=== PATIENT | female | born 1990 ===

== ENCOUNTER 2024-10-18 10:04 | Outpatient (AMB) | payer BC, SELFPAY ==
--- NOTE | 2024-10-18 10:08 | A.OFFPC_ITS ---
Vital Signs 10/18/24 10:17 Height 5 ft 5 in BMI Reason not done Patient refused/unable BP 102/68 Blood Pressure Location Lt brachial Position Sitting Respiration 12 Pulse 83 Pulse Source Pulse Oximeter Pulse Oximetry (%) 98 Oxygen Delivery Method Room Air Intake Visit Reasons: INSPECTOR ROUGH CASTINGS-EST CARE Intake Note: New patient to establish care Television News Photographer Required: No Allergies No Known Allergies Allergy (Verified 10/18/24 10:26) Medication List - Last Reconciled 10/18/24 by IRIS Ruby atomoxetine 40 mg PO DAILY Tobacco use date assessed: 10/18/24 Dental Screening Dental Screen Date: 10/18/24 Did you have a dental visit in the last 12 months?: Yes Did you have a dental problem in the last 6 months where you did not have access to dental care?: No Was dental information given to patient?: Patient has dentist HPI HPI Comments History of Present Illness Details 33 y/o F with ADHD, IBS, Herpes 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 Optho - glasses, last exam overdue. She will schedule The patient is a 33-year-old female presenting for a wellness visit and to establish care with a new provider. She has a history of Attention- Deficit/Hyperactivity Disorder (ADHD) that is managed by a psychiatrist with medication. The patient also has a diagnosis of Irritable Bowel Syndrome (IBS) that she associates with stress and dietary factors, though she currently does not feel the need to see a credit card specialist. Her IBS was more prominent during graduate school, a time she recalls being particularly stressful. There is no current GI specialist involved in her care. She reports occasional triggers that lead to episodes of nausea and loose stools, but she does not vomit. 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 She has previously been prescribed Acyclovir for symptomatic outbreaks. Her dietary changes, notably not eating meat, and improved stress management have helped reduce the frequency of outbreaks. She does not currently require suppressive therapy. 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 - Housing: Not discussed. - Education: Completed graduate school. - Family Status: Has one full brother, o ne half-sister on mother's side, and three half-siblings on father's side. - Substance Use: No current issues; fami ly history includes parental substance abuse. - Exercise: Not discussed. - Functional Status: Reports chronic low back pain since a previous injury, impacting her hamstrings. - Nutrition: Follows a diet excluding me at, reports improvements in her condition with this dietary change. Health Maintenance - Annual wellness visit to establish car e. - Discussed vaccinations: Intent to rece shelly flu vaccination at a convenient time (e.g., Wednesday afternoon). - Pap smear: Last conducted approximatel y three to four years ago, normal results reported. - Eye exam due for maintenance of her vi megan. - Depression screening negative, except for focus-related concerns attributed to ADHD. - Alcohol use screening negative. - Diet discussed as a potential manageme nt strategy for stress and cold sore outbreaks. - Discussed self-breast examinations and importance of visual examinations for skin changes. Physical Exam General: Well developed, well nourished, in no acute distress. Appears stated age. Head: Normocephalic, atraumatic. Eyes: Pupils are equal, round and reactive to light and accommodation. Conjunctivae are clear. Vision grossly normal. Patient wears glasses and is due for an eye exam. Ears: Tympanic membranes clear bilaterally, external auditory canal within normal limits. Hearing seems okay to the patient. Nose: Patent, without discharge. Mouth: There are no ulcers or lesions noted. No inflammation, no post nasal drip , no plaques nor exudates. Neck: Supple, no adenopathy or thyromegaly. A non-significant lump noted, unchanged for many years. Lungs: Clear to auscultation bilaterally. No rales, rhonchi or wheeze noted. Good air flow in all andre. Heart: Regular rate and rhythm. No murmurs, click, rubs or gallops are noted. Abdomen: Bowel sounds present in all quadrants. The abdomen is soft, nontender, with no masses or organomegaly noted. No hernias are noted. Patient reports IBS with occasional digestive upset. Musculoskeletal: Joints are nontender, without swelling, redness, or effusions. Range of motion is observed to be normal. Chronic low back strain noted, more guarded on the right side, affecting hamstrings. Pulses: Peripheral pulses are equal and palpable bilaterally. Extremities: No clubbing, cyanosis nor edema is noted. Good pulses in ankles. Neurologic: Gait and station normal. Cranial Nerves 2-12 intact. Motor strength grossly symmetrical and intact. No sensory loss. Balance normal. Skin: No rashes, ulcers, or lesions noted. Turgor is good. Skin color is good. Hair and nails are without abnormalities. Patient reports body acne, managed with an manager winter. Psych: Normal eye contact, affect and mood appropriate, and normal interactions. Patient is alert and appropriate to context. Reports ADHD and is managed by a psychiatrist. Plan - ADHD: Continue current management with psychiatrist, no changes warranted as symptoms appear under control. - IBS: No current active management; pat ient advised to maintain stress management techniques and dietary modifications. - Cold Sores: Prescribe Acyclovir for as -needed use to manage outbreaks promptly. - Wellness: Referral to OBGYN for women' s health maintenance and a routine Pap smear. - Vision: Recommend scheduling an eye ex am when feasible. - Back Pain: Encourage completing physic al therapy and visiting a chiropractor for structural support. Patient was informed and verbally consented to the use of an ambient scribe for clinic note documentation during this visit. Patient declined labs as she really does not like needles. I have advised for her to follow up in 1 year for complete physical exam, sooner as needed This note is constructed using voice recognition software. While every effort has been made to ensure accuracy in information systems project manager, still errors may have been included Sometimes, these errors may affect the content or meaning of the given sentence . [facility] Medical History (Updated 10/18/24 @ 17:21 by TRI Ruby) Cold sore IBS (irritable bowel syndrome) ADHD Surgical History (Updated 10/18/24 @ 10:16 by Aaron Smith MA) No pertinent past surgical history Family History Mother Mental health disorder Substance abuse Thyroid disorder Father Substance abuse Cancer Maternal Grandfather Substance abuse Maternal Grandmother Hypertension Cardiovascular disease Social History (Updated 10/18/24 @ 10:13 by Aaron Smith MA) Household Members: Other Household Members Other:: roomate Both parents involved: No Caregiver staying overnight: No Housing: Condominium Are you a primary transition of care specialist to a significant other at home: No Do you presently have visiting nurse or other home services: No 75 years or older and lives alone: No Alcohol intake: current Alcohol intake frequency: a few times a month Patient Tobacco Use Status: Never used Tobacco e-Cigarette/Vaping Use: Never Used Second Hand Smoke Exposure: No service: No Current occupational status: employed 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 1. Little interest or pleasure in doing things: not at all 2. Feeling down, depressed, or hopeless: not at all 3. Trouble falling or staying asleep, or sleeping too much: not at all 4. Feeling tired or having little energy: not at all 5. Poor appetite or overeating: not at all 6. Feeling bad about yourself - or that you are a failure or have let yourself or your family down: not at all 7. Trouble concentrating on things, such as reading the newspaper or watching television: nearly every day 8. Moving or speaking so slowly that other people could have noticed. Or the opposite - being so fidgety or restless that you have been moving around a lot more than usual: not at all 9. Thoughts that you would be better off or of hurting yourself in some way: not at all Total score: 3 Depression Screening Interpretation: Negative Depression Screening Done: Yes 81936 - PHQ-9 Billing: Yes Source: Developed by Drs. Nicholas Isabel, Aminta Chacon, Mich Hyman and colleagues, with an educational brenden from [employer]. Thrive Questionnaire Date Thrive assessed: 10/18/24 I am a: Patient What is your living situation today?: I have a steady place to live Within the past 12 months, did the food you bought not last and you didn't have the money to get more?: Never true Within the past 12 months, did you worry whether your food would run out before you got money to buy more?: Never true Do you have trouble paying for medicines?: No Do you have trouble getting transportation to medical appointments?: No Do you have trouble paying your heating and electricity bill?: No Do you have trouble taking care of your child, family member or friend?: No Do you have trouble with day-to-day activities such as bathing, preparing meals, shopping, managing finances, etc.?: No Are you currently unemployed and looking for a job?: No Are you interested in more education?: No Please select the resources that you would like help with: None Currently or been in a relationship where the following occur: I choose not to answer THRIVE Score: 0 AUDIT C Alcohol Use Questionnaire (AUDIT-C) 1. How often do you have a drink containing alcohol?: 2-4 times a month 2. How many drinks containing alcohol do you have on a typical day when you are drinking?: 1 or 2 3. How often do you have six or more drinks on one occasion?: Never Total Score: 2 Score Reviewed/Action Taken: Yes LIBERTAD-7 AMB Questionnaire LIBERTAD-7 Date LIBERTAD - 7 assessed: 10/18/24 Feeling nervous, anxious, or on edge: 0 = Not at all Not being able to stop or control worryin = Not at all Worrying too much about different things: 0 = Not at all Trouble relaxin = Not at all Being so restless that it is hard to sit still: 0 = Not at all Becoming easily annoyed or irritable: 0 = Not at all Feeling afraid as if something awful might happen: 0 = Not at all Total LIBERTAD-7 score (0-4 normal; 5-9 mild; 10-14 moderate; 15-21 severe): 0 Source: Developed by Drs. Nicholas Isabel, Aminta Chacon, Mich Hyman and colleagues, with an educational brenden from [employer]. LIBERTAD-7 Assessment Billing LIBERTAD-7 Assessment Tool: LIBERTAD-7 Assessment 26852 Physical exam (Primary Care) Vital Signs: Last Vital Signs Pulse 83 10/18/24 10:17 Resp 12 10/18/24 10:17 BP 102/68 10/18/24 10:17 Pulse Ox 98 10/18/24 10:17 Oxygen Delivery Method Room Air 10/18/24 10:17 Tobacco/Smoking Status: Tobacco use Status Tobacco use date assessed 10/18/24 10/18/24 10:19 Patient Tobacco Use Status Never used Tobacco 10/18/24 10:19 e-Cigarette/Vaping Use Never Used 10/18/24 10:19 PHQ-9: PHQ-9 Score PHQ-9: Total score 3 10/18/24 10:37 Depression Screening Interpretation: Negative Thrive Assessment: Date of Thrive Assessment Date Thrive assessed 10/18/24 10/18/24 10:19 Currently or been in a relationship where the following occur: I choose not to answer Coding Level of Care Code New Pt Prev Care 18-39yr(35342 Diagnoses Encounter for general adult medical examination without abnormal findings Z00.00 Attention deficit hyperactivity disorder (ADHD), combined type F90.2 Attention deficit-hyperactivity disorder type: combined inattentive- hyperactive Herpes B00.9 Chronic bilateral low back pain without sciatica M54.50; G89.29 Back pain laterality: bilateral Sciatica presence: without sciatica Additional Codes LIBERTAD-7 Assessment Billing - LIBERTAD-7 Assessment Tool: LIBERTAD-7 Assessment 44519 ([id number]) PHQ-9 - 28671 - PHQ-9 Billing: Yes ([id number]) Assessment & Plan Assessment & Plan (1) Encounter for general adult medical examination without abnormal findings: Code(s): Z00.00 - Encounter for general adult medical examination without abnormal findings (2) ADHD: Code(s): F90.9 - Attention-deficit hyperactivity disorder, unspecified type Qualifiers: Attention deficit-hyperactivity disorder type: combined inattentive- hyperactive Qualified Code(s): F90.2 - Attention-deficit hyperactivity disorder, combined type (3) Herpes: Code(s): B00.9 - Herpesviral infection, unspecified Category: Medical (4) Chronic low back pain: Code(s): M54.50 - Low back pain, unspecified; G89.29 - Other chronic pain Category: Medical Qualifiers: Back pain laterality: bilateral Sciatica presence: without sciatica Qualified Code(s): M54.50 - Low back pain, unspecified; G89.29 - Other chronic pain Plan . 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 The purpose of these visits is to: Screen for medical issues Assess your risk for future medical problems Encourage a healthy lifestyle Update vaccinations and other preventive care services Help you get to know your provider in case of an illness Information Even if you feel fine, you should still see your provider for regular checkups. These visits can help you avoid problems in the future. For example, the only way to find out if you have high blood pressure is to have it checked regularly. High blood sugar and high cholesterol levels also may not have any symptoms in the early stages. A simple blood test can check for these conditions. There are specific times when you should see your provider or receive specific health screenings. The [place] Preventive Services Task Force publishes a list of recommended screenings. Below are screening guidelines for women ages 18 to 39. BLOOD PRESSURE SCREENING Your blood pressure should be checked at least once every 3 to 5 years if: Your blood pressure is in the normal range (top number less than 120 mm Hg and bottom number less than 80 mm Hg) You don't have risk factors for high blood pressure Ask your provider if you need your blood pressure checked more often if: The top number is 120 to 129 mm Hg or the bottom number is 70 to 79 mm Hg You have diabetes, heart disease, kidney problems, are overweight, or have certain other health conditions You have a first-degree relative with high blood pressure You are Black You had high blood pressure during a If the top number is 130 mm Hg or greater or the bottom number is 80 mm Hg or greater, this is considered stage 1 hypertension. Schedule an appointment with your provider to learn how you can reduce your blood pressure. Watch for blood pressure screenings in your area. Ask your provider if you can stop in to have your blood pressure checked. BREAST CANCER SCREENING Experts do not agree about the benefits of breast self-exams in finding breast cancer or saving lives. Talk to your provider about what is best for you. A screening mammogram is not recommended for most women under age 40. Your provider may discuss and recommend mammograms, MRI scans, or ultrasounds if you have an increased risk for breast cancer, such as: A mother or sister who had breast cancer at a young age (most often starting screening earlier than the age the close relative was diagnosed) You carry a high-risk genetic marker CERVICAL CANCER SCREENING Cervical cancer screening should start at age 21 years unless your provider advises otherwise. After the first test: Women ages 21 through 29 should have a Pap test every 3 years. Exoprts do not agree on whether HPV testing is recommended for this age group. Women ages 30 through 65 should be screened with either a Pap test every 3 years or the HPV test every 5 years or both tests every 5 years (called cotesting ). Women who have been treated for precancer (cervical dysplasia) should continue to have Pap tests for 20 years after treatment or until age 65, whichever is longer. If you have had your uterus and cervix removed (total hysterectomy), and you have not been diagnosed with cervical cancer or precancer (high grade cervical neoplasia), you do not need cervical cancer screening. CHOLESTEROL SCREENING Cholesterol screening should begin at: Age 45 for women with no known risk factors for coronary heart disease Age 20 for women with known risk factors for coronary heart disease Repeat cholesterol screening should take place: Every 5 years for women with normal cholesterol levels More often if changes occur in lifestyle (including weight gain and diet) More often if you have diabetes, heart disease, kidney problems, or certain other conditions DIABETES SCREENING You should be screened for diabetes starting at age 35 and then repeated every 3 years if you have no risk factors for diabetes. Screening may need to start earlier and be repeated more often if you have other risk factors for diabetes, such as: You have a first degree relative with diabetes. You are overweight or have obesity. You have high blood pressure, prediabetes, or a history of heart disease. Screening for diabetes should be done if you are planning to become and you are overweight and have other risk factors such as high blood pressure. DENTAL EXAM Go to the dentist once or twice every year for an exam and cleaning. Your dentist will evaluate if you need more frequent visits. EYE EXAM Have an eye exam every 5 to 10 years before age 40. If you have vision problems, have an eye exam every 2 years or more often if recommended by your provider. You should have an eye exam that includes an examination of your retina (back of your eye) at least every year if you have diabetes. IMMUNIZATIONS Commonly needed vaccines include: Flu shot: get one every year. COVID-19 vaccine: ask your provider what is best for you. Tetanus-diphtheria and acellular pertussis (Tdap) vaccine: have one at or after age 19 as one of your tetanus-diphtheria vaccines if you did not receive it as an adolescent. Tetanus-diphtheria: have a booster (or Tdap) every 10 years. Varicella vaccine: receive 2 doses if you never had chickenpox or the varicella vaccine. Hepatitis B vaccine: receive 2, 3, or 4 doses, depending on your exact circumstances. Measles, mumps, and rubella (MMR) vaccine: receive 1 to 2 doses if you are not already immune to MMR. Your provider can tell you if you are immune. Ask your provider about the human papillomavirus (HPV) vaccine if: You have not received the HPV vaccine in the past You have not completed the full vaccine series (you should catch up on this shot) Ask your provider if you should receive other immunizations if you have certain health problems that increase your risk for some diseases such as pneumonia. INFECTIOUS DISEASE SCREENING Women who are sexually active should be screened for chlamydia and gonorrhea up until age 25. Women 25 years and older should be screened for chlamydia and gonorrhea if at high risk. Screening for hepatitis C: All adults ages 18 to 79 should get a one-time test for hepatitis C. people should be screened at every . Screening for human immunodeficiency virus (HIV): All people ages 15 to 65 should get a one-time test for HIV. Depending on your lifestyle and medical history, you may also need to be screened for infections such as syphilis and HIV, as well as other infections. PHYSICAL EXAM All adults should visit their provider from time to time, even if they are healthy. The purpose of these visits is to: Screen for disease Assess your risk of future medical problems Encourage a healthy lifestyle Update your vaccinations and other preventive care services Maintain a relationship with a provider in case of an illness Your height, weight, and BMI should be checked at every exam. During your exam, your provider may ask you about: Depression and anxiety Diet and exercise Alcohol and tobacco use Safety issues, such as using seat belts, smoke detectors, and intimate partner violence Your medicines and risk for interactions SKIN SELF-EXAM Your provider may check your skin for signs of skin cancer, especially if you're at high risk, such as if you: Have had skin cancer before Have close relatives with skin cancer Have a weakened immune system OTHER SCREENING Talk with your provider about colon cancer screening if you have a strong family history of colon cancer or polyps, or if you have had inflammatory bowel disease or polyps yourself. Routine bone density screening of women under 40 is not recommended. Walk-In Care (Urgent Care): We Make it Easy Walk-in for urgent medical issues such as: ? Seasonal Allergies ? Insect Bites ? Cough ? Diarrhea ? Acute Asthma Attacks ? Back, Knee or Joint Pain ? Ear Infection ? Fever without a Rash ? Headaches ? Nausea ? [place] [facility], Rash or Skin Irritation ? Sore Throat ? Sports Physicals ? Vomiting Most insurances are accepted. Patients do not need to be part of the [facility] to seek care at the walk-in clinic. Locations [facility] , [place] [address] ? [phone] [facility] Walk-In Care in [place] provides services to ages 18 and over. Open Wednesday-Wednesday: 8 a.m. to 5 p.m. and Wednesday: 9 a.m. to 3 p.m.* *Hours may vary due to staffing availability. To confirm Walk-In Care hours in [place], please call [phone]. [address] [place] [address] ? [phone] [facility] Walk-In Care in [place] provides services to ages 12 and over. Open Wednesday-Wednesday: 8 a.m. to 5 p.m. Hours may vary due to staffing availability. To confirm Walk-In Care hours in [place], please call [phone]. LABORATORY SERVICES: [facility] ? Primary Location [address] [place] [address] Wednesday through Wednesday 6:00 AM ? 5:00 PM Wednesday 7:00 AM ? 11:00 AM* [phone] The [facility] is centrally located near the front entrance of the [facility] for easy outpatient access. Convenient parking is provided for outpatients. *Hours may vary due to staffing availability. To confirm Laboratory hours for any location, please call [phone]. Offsite Location For your convenience, we offer offsite laboratory draw stations at the following locations: [address] [place] [address] ? [facility] [address], [address], [place] Wednesday through Wednesday 7:30 AM ? 1:00 PM* [phone] *Hours may vary due to staffing availability. To confirm Laboratory hours for any location, please call [phone]. [place] [address] Wednesday through Wednesday 6:00 AM ? 3:30 PM* Wednesday 6:30 AM ? 3 PM* [phone] *Hours may vary due to staffing availability. To confirm Laboratory hours for any location, please call [phone]. [address] [facility] Wednesday through Wednesday 7:30 AM ? 4:00 PM* [phone] *Hours may vary due to staffing availability. To confirm Laboratory hours for any location, please call [phone]. [address] [facility] Wednesday through 9:00 AM ? 4:00 PM* *Hours may vary due to staffing availability. To confirm Laboratory hours for any location, please call [phone]. Appointments are not necessary. Walk-ins are welcome. Like all the departments throughout the [facility], our Lab undergoes frequent reviews to ensure the quality and accuracy of test results, and our staff takes special pride in its status as a nationally accredited facility. Patient Portal: ONE PATIENT. ONE RECORD. BETTER CARE. [facility] has a fully integrated, cutting- edge mobile electronic health information system that has revolutionized the way we care for our patients and manage our organization. This system improves communication and coordination enabling us to provide safe, higher-quality care, and an overall positive experience for staff and patients. Our first priority, as always, is to deliver the highest quality care possible. The system is running in the background supporting that priority. This portal is for all [facility] and [facility] services and practices. If you are experiencing any technical difficulties with enrolling or logging into the Patient Portal please complete the [facility] Patient Portal Technical Support Form. [facility] now offers a new secure on-line interactive tool for patients to review their health information ? Patient Portal. This interactive web portal will enable patients and their families to take an active role in their care by providing easy, secure access to their health information via the internet. The Patient Portal provides patients with instant access to their health information, including laboratory results, medications, allergies, demographic information, visit history, and more. In addition to managing their own care, parents and health care proxies with authorized consent will appreciate the ability to access the records of those individuals for whom they provide care. Please note: if you wish to gain access (Proxy) to another patient?s portal, you will be required to come to the Medical Records Department in person at [facility]. Both the patient giving proxy access and the proxy will need to provide photo identification and complete the appropriate authorization. The Patient Portal also allows track their appointments online. The [facility] Patient Portal also saves patients time by allowing them to submit updates to their demographic and contact information prior to their visits. Portal email notifications will also alert patients to any new activity on their portal, such as test results and new appointments. In order to initially enroll in the [facility] Patient Portal, you will need to enter some required information including the following: ? your [facility] Medical Record number ? your personal home email address ? name ? date of Please note: In order to enroll in the [facility] Patient Portal, we need to have your email address on file in your electronic medical record. The email address needs to be specific for one person (yourself) in order for your Portal enrollment to be successful. You can update your email address in person with our Registration staff when you are registering for a hospital visit. Otherwise, you will need to come to the Health Information Management (Medical Records) Department at [facility]. We are open from Wednesday ? Wednesday from 7:30 a.m. ? 4:30 p.m. You will be required to present a photo id. Once you have successfully enrolled in the Patient Portal, you will receive a one-time user id and password for the Portal, sent to your email address. This will allow you to log into the Patient Portal within 99 hrs and reset your own logon id and password, and define personal security questions. Once your permanent login and password have been set, you can log into the [facility] Patient Portal at any time via the blue button above or from the Portal Logon button on any page of the [facility] website. [facility] and [facility] encourage all of our patients to enroll in Patient Portal as it presents a valuable opportunity for patients and their families to actively participate in their care and stay healthy Welcome to [facility]. We look forward to working with you.
[2024-10-18 10:17] VITALS: BP 102/68; PULSE 83; RESP 12; O2SAT 98
== END 2024-10-18 10:49 | disposition home or self-care (01) ==
PROVIDERS: PCP Nurse Practitioner Family; Visit Provider Nurse Practitioner Family
DX: Z00.00 Encounter for general adult medical examination without abnormal findings (principal); F90.2 Attention-deficit hyperactivity disorder, combined type; B00.9 Herpesviral infection, unspecified; M54.50 Low back pain, unspecified; G89.29 Other chronic pain

== ENCOUNTER → 2024-10-18 10:04 | Outpatient (BNVA) | payer BC, SELFPAY | PROVIDERS: PCP Nurse Practitioner Family; Visit Provider Nurse Practitioner Family | DX: F90.2 Attention-deficit hyperactivity disorder, combined type (principal); B00.9 Herpesviral infection, unspecified; G89.29 Other chronic pain; M54.50 Low back pain, unspecified; K58.9 Irritable bowel syndrome, unspecified | CPT/HCPCS: 96127 ==

== ENCOUNTER 2025-06-22 08:09 | Outpatient (AMB) | payer OTHER, SELFPAY ==
--- NOTE | 2025-06-22 07:39 | A.OFFPC_ITS ---
Intake Visit Reasons: Referrals and Anxiety (GET INS) Intake Note: Telehealth requesting lab work, std check and referrals. 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 - Previous ADHD treatment was discontinu ed, Atomextine didnt work well; had med prescriber, didnt like her; no longer following. - Anxiety symptoms correlate w/ untreate d ADHD. - Also has work stressors; room mate mov ed out, etc. - Sensitive to meds in general. IBS worse w/ uncontrolled anxiety. 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 - Gastrointestinal: Reports no current s ymptoms but need for baseline blood work. - Genitourinary: Denies any active genit ourinary symptoms. - Dermatologic: Reports atypical skin le sions and family history of skin cancer. Physical Exam Limited physical exam was conducted Awake alert NAD Speaking in full sentences Engaging, appropriate Skin pink warm and dry Results Pending Discussion Notes The patient and I discussed her diagnosis of generalized anxiety disorder with a probable connection to untreated ADHD symptoms. After reviewing previous treatment experiences, we discussed the potential benefits of reinitiating pharmacotherapy with Wellbutrin, a non-stimulant antidepressant also effective for ADHD and anxiety management. Benefits include efficacy in ADHD and reduced need to manage stimulant side effects. Risks discussed include potential GI side effects and rare anxiety exacerbation. I advised taking the medication in the morning due to its mild stimulating effect. Metoprolol was also offered for on- demand management of acute anxiety symptoms. The patient was receptive, and prescriptions were sent to her preferred pharmacy. We discussed referrals to dermatology for skin lesions and GI services. Baseline laboratories, including an STD screen, were ordered with requirements discussed. The patient declined to receive information for [employer] genetic testing @ this time. A follow-up in four to six weeks was scheduled to assess her response to treatments and manage care going forward. Patient was given time to ask questions. All questions were answered to their satisfaction. Assessment and Plan 1. Generalized Anxiety Disorder - Start bupropion (Wellbutrin) 150mg for management. - Metoprolol as needed for anxiety. 12.5 -25mg - Follow-up in four to six weeks. 2. Attention-Deficit/Hyperactivity Disor reji - Bupropion for ADHD symptoms. 3. Dermatologic Concerns - Refer to [facility]. - Baseline lab work discussed. - STD testing - Refer to GI services. - Offer RealtyAPX testing for further me dication guidance. Patient Instructions - Start taking Wellbutrin in the morning as it can affect sleep if taken at night. - Be aware of any side effects like naus ea or constipation, and seek help if they become severe. - Use Metoprolol only when feeling acute anxiety and start with a half-pill if needed. - Follow preparation instructions for la b work, especially fasting and morning urine sample. - Follow-up appointment will be schedule d in four to six weeks to check progress. - Reach out if there are any issues with the medication or other new symptoms appear. Consent Patient was informed and verbally consented to the use of an ambient scribe for clinic note documentation during this visit. Telehealth Attestation The patient has been explained that this is an interactive (audio/video) telehealth encounter and what that consists of. The patient understands and wishes to proceed. [employer] platform was used. Total time spent caring for the patient today was 41 minutes. This includes time spent before the visit reviewing the chart, time spent during the visit, and time spent after the visit on documentation, reviewing laboratory results, diagnostic imaging, medications, performing a medically necessary evaluation, counseling on diagnoses, care coordination, ordering appropriate tests, ordering appropriate medications, review of tests performed by other providers, reporting test results with the patient, communication with other healthcare providers. [facility] Medical History (Updated 06/22/25 @ 09:29 by Katie Pompa [facility]) ADHD Cold sore IBS (irritable bowel syndrome) Surgical History (Updated 10/18/24 @ 10:16 by Aaron Smith MA) No pertinent past surgical history Family History Mother Mental health disorder Substance abuse Thyroid disorder Father Substance abuse Cancer Maternal Grandfather Substance abuse Maternal Grandmother Hypertension Cardiovascular disease Social History (Updated 10/18/24 @ 10:13 by Aaron Smith MA) Household Members: Other Household Members Other:: roomate Both parents involved: No Caregiver staying overnight: No Housing: Condominium Are you a primary health care assistant to a significant other at home: No Do you presently have visiting nurse or other home services: No 75 years or older and lives alone: No Alcohol intake: current Alcohol intake frequency: a few times a month Patient Tobacco Use Status: Never used Tobacco e-Cigarette/Vaping Use: Never Used Second Hand Smoke Exposure: No service: No Current occupational status: employed 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 Cognitive needs: No Hearing needs: No Vision needs: Yes (wear glasses) Questionnaire Thrive Questionnaire Date Thrive assessed: 06/22/25 I am a: Patient What is your living situation today?: I have a steady place to live Within the past 12 months, did the food you bought not last and you didn't have the money to get more?: Never true Within the past 12 months, did you worry whether your food would run out before you got money to buy more?: Never true Do you have trouble paying for medicines?: No Do you have trouble getting transportation to medical appointments?: No Do you have trouble paying your heating and electricity bill?: No Do you have trouble taking care of your child, family member or friend?: No Do you have trouble with day-to-day activities such as bathing, preparing meals, shopping, managing finances, etc.?: No Are you currently unemployed and looking for a job?: No Are you interested in more education?: No Please select the resources that you would like help with: None Currently or been in a relationship where the following occur: I choose not to answer THRIVE Score: 0 AUDIT C Alcohol Use Questionnaire (AUDIT-C) 2. How many drinks containing alcohol do you have on a typical day when you are drinking?: 1 or 2 3. How often do you have six or more drinks on one occasion?: Never Total Score: 0 LIBERTAD-7 AMB Questionnaire LIBERTAD-7 Date LIBERTAD - 7 assessed: 10/18/24 Source: Developed by Drs. Nicholas Isabel, Aminta Chacon, Mich Hyman and colleagues, with an educational brenden from [employer]. Physical exam (Primary Care) Tobacco/Smoking Status: Tobacco use Status Tobacco use date assessed 06/22/25 06/22/25 09:12 Patient Tobacco Use Status Never used Tobacco 06/22/25 07:39 e-Cigarette/Vaping Use Never Used 06/22/25 07:39 Thrive Assessment: Date of Thrive Assessment Date Thrive assessed 06/22/25 06/22/25 09:12 Currently or been in a relationship where the following occur: I choose not to answer Telehealth Telehealth Telehealth Platform: D[employer]imity Location of provider rendering services: practice address Location of patient: address on file Patient Identification confirmed using: Name, : Yes Telehealth method: video Patient verbally consented to treatment: Yes Patient verbally consented to billing insurance company: Yes Patient informed of any privacy concerns related to visit: Yes Minutes spent on Phone/Video with Pt.: 20 Coding Level of Care Code Tele Est Pt Level 5 (44420) Complex EM visit Add On G2211 Diagnoses LIBERTAD (generalized anxiety disorder) F41.1 Attention deficit hyperactivity disorder (ADHD), unspecified ADHD type F90.9 Attention deficit-hyperactivity disorder type: unspecified Irritable bowel syndrome, unspecified type K58.9 Irritable bowel syndrome type: unspecified Laboratory exam ordered as part of routine general medical examination Z00.00 Family history of skin cancer Z80.8 Back skin lesion L98.9 Assessment & Plan Assessment & Plan (1) LIBERTAD (generalized anxiety disorder): Code(s): F41.1 - Generalized anxiety disorder Category: Medical (2) ADHD: Code(s): F90.9 - Attention-deficit hyperactivity disorder, unspecified type Category: Medical Qualifiers: Attention deficit-hyperactivity disorder type: unspecified Qualified Code(s): F90.9 - Attention-deficit hyperactivity disorder, unspecified type (3) IBS (irritable bowel syndrome): Code(s): K58.9 - Irritable bowel syndrome, unspecified Category: Medical Qualifiers: Irritable bowel syndrome type: unspecified Qualified Code(s): K58.9 - Irritable bowel syndrome, unspecified (4) Laboratory exam ordered as part of routine general medical examination: Code(s): Z00.00 - Encounter for general adult medical examination without abnormal findings Category: Medical (5) Family history of skin cancer: Comment: FLOWER Code(s): Z80.8 - Family history of malignant neoplasm of other organs or systems Category: Medical (6) Back skin lesion: Code(s): L98.9 - Disorder of the skin and subcutaneous tissue, unspecified Category: Medical Plan , Orders: Orders Complete Blood Count no Diff Today Z00.00 - Encounter for general adult medical examination without abnormal findings, Z11.3 - Encounter for screening for infections with a predominantly sexual mode of transmission TSH reflex Free T4 Today Z00.00 - Encounter for general adult medical examination without abnormal findings, Z11.3 - Encounter for screening for infec tions with a predominantly sexual mode of transmission Vitamin B12 and Folate Today Z00.00 - Encounter for general adult medical examination without abnormal findings, Z11.3 - Encounter for screening for infections with a predominantly sexual mode of transmission Vitamin D 25-OH Total Today Z00.00 - Encounter for general adult medical examination without abnormal findings, Z11.3 - Encounter for screening for infections with a predominantly sexual mode of transmission Syphilis Screen Today Z00.00 - Encounter for general adult medical examination without abnormal findings, Z11.3 - Encounter for screening for infections with a predominantly sexual mode of transmission Comprehensive Met. Panel Today Z00.00 - Encounter for general adult medical examination without abnormal findings, Z11.3 - Encounter for screening for infections with a predominantly sexual mode of transmission Hemoglobin A1c Today Z00.00 - Encounter for general adult medical examination without abnormal findings, Z11.3 - Encounter for screening for infections with a predominantly sexual mode of transmission Lipid Panel Today Z00.00 - Encounter for general adult medical examination without abnormal findings, Z11.3 - Encounter for screening for infections with a predominantly sexual mode of transmission Microalbumin, Random (w Creat) Today Z00.00 - Encounter for general adult medical examination without abnormal findings, Z11.3 - Encounter for screening for infections with a predominantly sexual mode of transmission UA CC w/rflx Micro + Cult Today R30.0 - Dysuria, Z00.00 - Encounter for general adult medical examination without abnormal findings, Z11.3 - Encounter for screening for infections with a predominantly sexual mode of transmission HIV Ab/Ag Today Z00.00 - Encounter for general adult medical examination without abnormal findings, Z11.3 - Encounter for screening for infections with a predominantly sexual mode of transmission CT NG by PCR Urine Today Z00.00 - Encounter for general adult medical examination without abnormal findings, Z11.3 - Encounter for screening for infections with a predominantly sexual mode of transmission Referrals Gastroenterology Referral K58.9 - Irritable bowel syndrome, unspecified Dermatology Referral L98.9 - Disorder of the skin and subcutaneous tissue, unspecified, Z80.8 - Family history of malignant neoplasm of other organs or systems Medications: New bupropion HCl XL (Wellbutrin XL) 150 mg PO QAM 30 tabs 1RF metoprolol tartrate 25 mg PO DAILY PRN 30 tabs 2RF anxiety
== END 2025-06-22 09:42 | disposition home or self-care (01) ==
LOC: HO.HMCFM 08:09
PROVIDERS: PCP Nurse Practitioner Family; Visit Provider Nurse Practitioner Family
DX: K58.9 Irritable bowel syndrome, unspecified (principal); F41.1 Generalized anxiety disorder; F90.9 Attention-deficit hyperactivity disorder, unspecified type; Z80.8 Family history of malignant neoplasm of other organs or systems; L98.9 Disorder of the skin and subcutaneous tissue, unspecified

== ENCOUNTER 2025-06-28 09:41 | Outpatient (REF) | payer OTHER, SELFPAY ==
[2025-06-28 10:41] LABS: Hematocrit 41.8 % (37.0-47.0); Hemoglobin 14.0 g/dl (12.0-16.0); Mean Corpuscular HGB Conc 33.5 g/dl (31.0-35.0); Mean Corpuscular Hemoglobin 27.9 pg (27.0-33.0); Mean Corpuscular Volume 83.3 fL (80.0-98.0); NRBC Abs Auto 0.000 X10*3/uL (0.0-0.012); NRBC Pct Auto 0.0 /100WBC (0.0-0.2); Platelet Count 329 X10*3/uL (160-400); Red Blood Count 5.02 X10*6/uL (4.20-5.50); White Blood Count 7.2 X10*3/uL (4.8-10.8)
[2025-06-28 10:48] LABS: Hemoglobin A1C 108.9069 umol/L; Total Hemoglobin (HGBA1C) 3610.1038 umol/L
[2025-06-28 11:16] LABS: Alanine Aminotransferase 19 U/L (0-31); Albumin Level 4.1 g/dL (3.5-5.0); Alkaline Phosphatase 76 U/L (39-117); Anion Gap 10 (12-20); Aspartate Amino Transferase 21 U/L (5-31); Blood Urea Nitrogen 10 mg/dL (9-16); Calcium 8.8 mg/dL (8.4-10.2); Carbon Dioxide 25 mmol/L (22-29); Chloride 107 mmol/L (96-108); Cholesterol 157 mg/dL (<200); Estimated Glomerular Filt Rate > 60; HDL Cholesterol 43 mg/dL (>40); Potassium 4.4 mmol/L (3.3-5.1); Sodium 138 mmol/L (135-145); Total Protein 6.3 g/dL (6.5-8.0); Triglycerides 49 mg/dL (<150)
[2025-06-28 11:21] LABS: HIV Num 1 0.06 S/CO (0.00-0.99)
[2025-06-28 11:23] LABS: Syphilis Screen Nonreactive (Nonreactive)
[2025-06-28 11:38] LABS: Folate 9.0 ng/mL (> or = 4.0); Vitamin B12 383 pg/mL (200-900)
[2025-06-28 12:09] LABS: CT PCR Urine NOT DETECTED (Not Detect.); NG PCR Urine NOT DETECTED (Not Detect.)
[2025-06-28 12:53] LABS: Appearance Urine Clear; Glucose Urine UA Negative (Negative); PH 7.5 (5.0-9.0); Specific Gravity - Urine <= 1.005 (1.005-1.025)
== END 2025-06-28 09:42 | disposition home or self-care (01) ==
LOC: HO.LAB 09:41
PROVIDERS: PCP Nurse Practitioner Family; Visit Provider Nurse Practitioner Family
DX: Z00.00 Encounter for general adult medical examination without abnormal findings (principal); Z11.3 Encounter for screening for infections with a predominantly sexual mode of transmission; Z11.4 Encounter for screening for human immunodeficiency virus [HIV]; Z11.8 Encounter for screening for other infectious and parasitic diseases; Z13.6 Encounter for screening for cardiovascular disorders; Z13.21 Encounter for screening for nutritional disorder; Z13.29 Encounter for screening for other suspected endocrine disorder; R30.0 Dysuria
CPT/HCPCS: 80053; 80061; 81003; 82043; 82306; 82570; 82607; 82746; 83036; 84443; 85027; 86780; 87389; 87491; 87591

== ENCOUNTER 2025-07-05 08:51 | Outpatient (AMB) | payer OTHER, SELFPAY ==
--- NOTE | 2025-07-05 09:01 | A.OFFPC_ITS ---
Vital Signs 3 07/05/25 09:04 07/05/25 09:24 Height 5 ft 5 in BMI Reason not done Patient refused/unable BP 98/68 108/74 Blood Pressure Location Rt brachial Rt brachial Position Sitting Sitting Respiration 12 Pulse 68 Pulse Source Pulse Oximeter Temp 97.0 F Temp Source Oral Pulse Oximetry (%) 98 Oxygen Delivery Method Room Air Intake Visit Reasons: boil in my groin area Intake Note: Patient c/o boil on groin area x 1 week. Application Consultant Required: No Allergies No Known Allergies Allergy (Verified 07/05/25 09:02) Medication List - Last Reconciled 07/05/25 by Katie Pompa, ASSOCIATE PROFESSOR OF CHEMISTRY- bupropion HCl XL (Wellbutrin XL) 150 mg PO QAM cholecalciferol (vitamin D3) 50 mcg PO DAILY doxycycline hyclate 100 mg PO BID glycopyrronium tosylate 2.4% (Qbrexza) 1 appl topical DAILY metoprolol tartrate 25 mg PO DAILY PRN Tobacco use date assessed: 07/05/25 Dental Screening Dental Screen Date: 07/05/25 Did you have a dental visit in the last 12 months?: Yes Did you have a dental problem in the last 6 months where you did not have access to dental care?: No Was dental information given to patient?: Patient has dentist HPI HPI Comments 2 History of Present Illness0 Details 34 y/o F with ADHD, IBS, Herpes, LIBERTAD 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 - Recurs approximately every few months over two years. - Current episode started on Wednesday, at the end stage now, with slight bleeding and purulent drainage. - History of absence of fever or chills. - Contributing factor likely hyperhidros is exacerbated by physical activity. - Vit D def - on supplement, wonders how to take. Review of Systems - Skin/Integumentary: Reports recurrence of sebaceous cyst in the groin area with purulent discharge. - Constitutional: Denies fever, denies c hills. - Musculoskeletal: Denies any reported i ssues. Discussion Notes I discussed with the patient that the condition appears to be a sebaceous cyst resulting from a blocked sebaceous gland, worsened by friction and hyperhidrosis. The importance of keeping the area clean and dry, and avoiding unnecessary coverings that can lead to further trapping of sweat was addressed. I provided guidance on managing the cyst when it recurs, including the possibility of using doxycycline at the early stages of cyst development to prevent progression. Bleach washes in a safe dilution or witch zeinab wipes were suggested as additional measures to maintain skin integrity and reduce bacterial colonization. We discussed sending a prescription for Cubreeza to manage excessive sweating if covered by insurance and using doxycycline as pulse therapy instead of a daily antibiotic regimen. Regular exercises and lifestyle choices, like hygiene practices post-exercise, were also deliberated. The patient gave consent to try these management strategies, understanding they are not required but optional. Patient was given time to ask questions. All questions were answered to their satisfaction. Assessment and Plan 1. Sebaceous cyst - Doxycycline for recurrence. Take 200m g x 3 days - PRN not needed now Let me know via portal so i can track how often you need this - Maintain cleanliness. Optional witch h azel or bleach washes (10:1 ratio water:bleach) 2. Hyperhidrosis - Qybreza prescription submitted. Aware may be denied by insurance, but worth a try. - Advice on hygiene post-exercise. 3. Vit D def. Take in the evening prefe rably; or at anytime that you will remember RTO SCHEDULED, SOONER PRN Patient Instructions - Monitor the cyst, start doxycycline at the first sign of recurrence. - Maintain cleanliness in the affected a espinoza, consider bleach solutions or witch zeinab wipes. - Continue regular exercise but ensure p rompt hygiene afterwards. - Report any changes or further recurren mike. Consent Patient was informed and verbally consented to the use of an ambient scribe for clinic note documentation during this visit. Total time spent caring for the patient today was 30 minutes. This includes time spent before the visit reviewing the chart, time spent during the visit, and time spent after the visit on documentation, reviewing laboratory results, diagnostic imaging, medications, performing a medically necessary evaluation, counseling on diagnoses, care coordination, ordering appropriate tests, ordering appropriate medications, review of tests performed by other providers, reporting test results with the patient, communication with other healthcare providers. [facility] Medical History (Updated 07/05/25 @ 09:21 by Katie Pompa [facility]) ADHD Cold sore IBS (irritable bowel syndrome) Surgical History (Updated 10/18/24 @ 10:16 by Aaron Smith MA) No pertinent past surgical history Family History Mother Mental health disorder Substance abuse Thyroid disorder Father Substance abuse Cancer Maternal Grandfather Substance abuse Maternal Grandmother Hypertension Cardiovascular disease Social History (Updated 10/18/24 @ 10:13 by Aaron Smith MA) Household Members: Other Household Members Other:: roomate Both parents involved: No Caregiver staying overnight: No Housing: Condominium Are you a primary laboratory animal caretaker to a significant other at home: No Do you presently have visiting nurse or other home services: No 75 years or older and lives alone: No Alcohol intake: current Alcohol intake frequency: a few times a month Patient Tobacco Use Status: Never used Tobacco e-Cigarette/Vaping Use: Never Used Second Hand Smoke Exposure: No service: No Current occupational status: employed 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 1. Little interest or pleasure in doing things: not at all 2. Feeling down, depressed, or hopeless: not at all 3. Trouble falling or staying asleep, or sleeping too much: several days 4. Feeling tired or having little energy: more than half the days 5. Poor appetite or overeating: several days 6. Feeling bad about yourself - or that you are a failure or have let yourself or your family down: not at all 7. Trouble concentrating on things, such as reading the newspaper or watching television: several days 8. Moving or speaking so slowly that other people could have noticed. Or the opposite - being so fidgety or restless that you have been moving around a lot more than usual: not at all 9. Thoughts that you would be better off or of hurting yourself in some way: not at all Total score: 5 Depression Screening Interpretation: Positive Depression Screening Done: Yes 51355 - PHQ-9 Billing: Yes Source: Developed by Drs. Nicholas Isabel, Aminta Chacon, Mich Hyman and colleagues, with an educational brenden from [employer]. Thrive Questionnaire Date Thrive assessed: 07/05/25 I am a: Patient What is your living situation today?: I have a steady place to live Within the past 12 months, did the food you bought not last and you didn't have the money to get more?: Never true Within the past 12 months, did you worry whether your food would run out before you got money to buy more?: Never true Do you have trouble paying for medicines?: No Do you have trouble getting transportation to medical appointments?: No Do you have trouble paying your heating and electricity bill?: No Do you have trouble taking care of your child, family member or friend?: No Do you have trouble with day-to-day activities such as bathing, preparing meals, shopping, managing finances, etc.?: No Are you currently unemployed and looking for a job?: No Are you interested in more education?: No Please select the resources that you would like help with: None Currently or been in a relationship where the following occur: No concerns reported THRIVE Score: 0 AUDIT C Alcohol Use Questionnaire (AUDIT-C) 1. How often do you have a drink containing alcohol?: 2-4 times a month Total Score: 2 LIBERTAD-7 AMB Questionnaire LIBERTAD-7 Date LIBERTAD - 7 assessed: 07/05/25 Feeling nervous, anxious, or on edge: 2 = More than half the days Not being able to stop or control worryin = Several days Worrying too much about different things: 1 = Several days Trouble relaxin = More than half the days Being so restless that it is hard to sit still: 1 = Several days Becoming easily annoyed or irritable: 1 = Several days Feeling afraid as if something awful might happen: 0 = Not at all Total LIBERTAD-7 score (0-4 normal; 5-9 mild; 10-14 moderate; 15-21 severe): 8 Source: Developed by Aminta Jewell.W. Oswaldo, Mich Hyman and colleagues, with an educational brenden from [employer]. LIBERTAD-7 Assessment Billing LIBERTAD-7 Assessment Tool: LIBERTAD-7 Assessment 18414 Physical exam (Primary Care) Vital Signs: Last Vital Signs Temp 97.0 F 07/05/25 09:04 Pulse 68 07/05/25 09:04 Resp 12 07/05/25 09:04 BP 98/68 07/05/25 09:04 Pulse Ox 98 07/05/25 09:04 Oxygen Delivery Method Room Air 07/05/25 09:04 Tobacco/Smoking Status: Tobacco use Status Tobacco use date assessed 07/05/25 07/05/25 09:06 Patient Tobacco Use Status Never used Tobacco 07/05/25 09:06 e-Cigarette/Vaping Use Never Used 07/05/25 09:06 PHQ-9: PHQ-9 Score PHQ-9: Total score 5 07/05/25 09:06 Depression Screening Interpretation: Positive Thrive Assessment: Date of Thrive Assessment Date Thrive assessed 07/05/25 07/05/25 09:06 Currently or been in a relationship where the following occur: No concerns reported Female genitals images: 2 1. sebaceous cyst, nonfluctuent, no drainage, no warmth. 0.4x0.5cm Coding Level of Care Code Est Pt Level 4 (05592) Complex EM visit Add On G2211 Diagnoses Hyperhidrosis R61 Sebaceous cyst L72.3 Vitamin D deficiency E55.9 Additional Codes LIBERTAD-7 Assessment Billing - LIBERTAD-7 Assessment Tool: LIBERTAD-7 Assessment 15947 ([id number]) PHQ-9 - 73967 - PHQ-9 Billing: Yes ([id number]) Assessment & Plan Assessment & Plan (1) Hyperhidrosis: Code(s): R61 - Generalized hyperhidrosis Category: Medical (2) Sebaceous cyst: Code(s): L72.3 - Sebaceous cyst Category: Medical (3) Vitamin D deficiency: Code(s): E55.9 - Vitamin D deficiency, unspecified Category: Medical Plan . Medications: New 2 glycopyrronium tosylate 2.4% (Qbrexza) 1 appl topical DAILY 30 ea 12RF doxycycline hyclate 100 mg PO BID 14 tabs 0RF
[2025-07-05 09:04] VITALS: BP 98/68; PULSE 68; RESP 12; TEMP 36.1; O2SAT 98
[2025-07-05 09:24] VITALS: BP 108/74
== END 2025-07-05 09:27 | disposition home or self-care (01) ==
LOC: HO.HMCFM 08:51
PROVIDERS: PCP Nurse Practitioner Family; Visit Provider Nurse Practitioner Family
DX: R61 Generalized hyperhidrosis (principal); L72.3 Sebaceous cyst; E55.9 Vitamin D deficiency, unspecified

== ENCOUNTER → 2025-07-05 08:51 | Outpatient (BNVA) | payer OTHER, SELFPAY | PROVIDERS: PCP Nurse Practitioner Family; Visit Provider Nurse Practitioner Family | DX: L72.3 Sebaceous cyst (principal); R61 Generalized hyperhidrosis; E55.9 Vitamin D deficiency, unspecified | CPT/HCPCS: 96127 ==

== ENCOUNTER 2025-07-25 08:41 | Outpatient (AMB) | payer OTHER, SELFPAY ==
--- NOTE | 2025-07-25 08:28 | A.OFFPC_ITS ---
Intake Visit Reasons: FU wellbutrin start/prn BB LIBERTAD/ADHD Intake Note: Telehealth follow up on med start. 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: No Allergies No Known Allergies Allergy (Verified 07/25/25 08:39) Medication List - Last Reviewed 07/25/25 by Aaron Matthews MA bupropion HCl XL (Wellbutrin XL) 150 mg PO QAM cholecalciferol (vitamin D3) 50 mcg PO DAILY doxycycline hyclate 100 mg PO BID glycopyrronium tosylate 2.4% (Qbrexza) 1 appl topical DAILY metoprolol tartrate 25 mg PO DAILY PRN Tobacco use date assessed: 07/25/25 Dental Screening Dental Screen Date: 07/25/25 Did you have a dental visit in the last 12 months?: Yes Did you have a dental problem in the last 6 months where you did not have access to dental care?: No Was dental information given to patient?: Patient has dentist HPI HPI Comments History of Present Illness Details 34 y/o F with ADHD, IBS, Herpes, LIBERTAD, Vi t D def, Dyslipidemia, family hx skin ca (dad) 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 Interested in increasing to 300 mg. - Reports effective, use of Metoprolol for occasional anxiety, has taken 25mg 3 times; cont to use coping skills. - Vitamin D supplementation - forgetting to take in the evening. Advised ok to take in the AM. - Has not scheduled GI or Derm appts yet ; info provided at time of visit; encouraged to call and schedule - Cyst has resolved; has not needed Doxy . Review of Systems - Psychiatric: Denies side effects from Wellbutrin such as constipation, increased anxiety, or tremors. Physical Exam Limited physical exam was conducted Awake alert NAD Speaking in full sentences Engaging, appropriate Skin pink warm and dry Mood and affect appropriate Assessment and Plan 1. LIBERTAD/ADHD - Increase Wellbutrin to 300 mg daily. 2. Generalized Anxiety Disorder - Continue Metoprolol 25mg PRN - Maintain and enhance coping skills. 3. Irritable Bowel Syndrome (IBS) - GI consult - Provided follow-up contact information . 4. Vitamin D Deficiency - Continue supplementation, morning dosi ng acceptable. RTO in person or telehealth fu on Wellbutrin increase; sooner as needed. 8 weeks Patient was given time to ask questions. All questions were answered to their satisfaction. Telehealth Attestation The visit was conducted via telehealth, and documentation accurately reflects the information discussed during the visit. The patient has been explained that this is an interactive (audio/video) telehealth encounter and what that consists of. The patient understands and wishes to proceed. Zonoff platform was used. Total time spent caring for the patient today was 21 minutes. This includes time spent before the visit reviewing the chart, time spent during the visit, and time spent after the visit on documentation, reviewing laboratory results, diagnostic imaging, medications, performing a medically necessary evaluation, counseling on diagnoses, care coordination, ordering appropriate tests, ordering appropriate medications, review of tests performed by other providers, reporting test results with the patient, communication with other healthcare providers. [facility] Medical History (Updated 07/05/25 @ 09:21 by Katie Pompa [facility]) ADHD Cold sore IBS (irritable bowel syndrome) Surgical History (Updated 10/18/24 @ 10:16 by Aaron Smith MA) No pertinent past surgical history Family History Mother Mental health disorder Substance abuse Thyroid disorder Father Substance abuse Cancer Maternal Grandfather Substance abuse Maternal Grandmother Hypertension Cardiovascular disease Social History (Updated 10/18/24 @ 10:13 by Aaron Smith MA) Household Members: Other Household Members Other:: roomate Both parents involved: No Caregiver staying overnight: No Housing: Condominium Are you a primary continuum of care manager to a significant other at home: No Do you presently have visiting nurse or other home services: No 75 years or older and lives alone: No Alcohol intake: current Alcohol intake frequency: a few times a month Patient Tobacco Use Status: Never used Tobacco e-Cigarette/Vaping Use: Never Used Second Hand Smoke Exposure: No service: No Current occupational status: employed 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 Cognitive needs: No Hearing needs: No Vision needs: Yes (wear glasses) Questionnaire Thrive Questionnaire Date Thrive assessed: 07/03/25 I am a: Patient What is your living situation today?: I have a steady place to live Within the past 12 months, did the food you bought not last and you didn't have the money to get more?: Never true Within the past 12 months, did you worry whether your food would run out before you got money to buy more?: Never true Do you have trouble paying for medicines?: No Do you have trouble getting transportation to medical appointments?: No Do you have trouble paying your heating and electricity bill?: No Do you have trouble taking care of your child, family member or friend?: No Do you have trouble with day-to-day activities such as bathing, preparing meals, shopping, managing finances, etc.?: No Are you currently unemployed and looking for a job?: No Are you interested in more education?: No Please select the resources that you would like help with: None Currently or been in a relationship where the following occur: No concerns reported THRIVE Score: 0 LIBERTAD-7 AMB Questionnaire LIBERTAD-7 Date LIBERTAD - 7 assessed: 07/05/25 Source: Developed by Drs. Nicholas Isabel, Aminta Chacon, Mich Hyman and colleagues, with an educational brenden from [employer]. Physical exam (Primary Care) Tobacco/Smoking Status: Tobacco use Status Tobacco use date assessed 07/25/25 07/25/25 08:39 Patient Tobacco Use Status Never used Tobacco 07/25/25 08:29 e-Cigarette/Vaping Use Never Used 07/25/25 08:29 Thrive Assessment: Date of Thrive Assessment Date Thrive assessed 07/03/25 07/25/25 08:29 Currently or been in a relationship where the following occur: No concerns reported Telehealth Telehealth Telehealth Platform: [facility] Location of provider rendering services: practice address Location of patient: address on file Patient Identification confirmed using: Name, : Yes Telehealth method: video Patient verbally consented to treatment: Yes Patient verbally consented to billing insurance company: Yes Patient informed of any privacy concerns related to visit: Yes Minutes spent on Phone/Video with Pt.: 10 Coding Level of Care Code Tele Est Pt Level 3 (25292) Complex EM visit Add On G2211 Diagnoses Attention deficit hyperactivity disorder (ADHD), unspecified ADHD type F90.9 Attention deficit-hyperactivity disorder type: unspecified LIBERTAD (generalized anxiety disorder) F41.1 Vitamin D deficiency E55.9 Irritable bowel syndrome, unspecified type K58.9 Irritable bowel syndrome type: unspecified Assessment & Plan Assessment & Plan (1) ADHD: Code(s): F90.9 - Attention-deficit hyperactivity disorder, unspecified type Category: Medical Qualifiers: Attention deficit-hyperactivity disorder type: unspecified Qualified Code(s): F90.9 - Attention-deficit hyperactivity disorder, unspecified type (2) LIBERTAD (generalized anxiety disorder): Code(s): F41.1 - Generalized anxiety disorder Category: Medical (3) Vitamin D deficiency: Code(s): E55.9 - Vitamin D deficiency, unspecified Category: Medical (4) IBS (irritable bowel syndrome): Code(s): K58.9 - Irritable bowel syndrome, unspecified Category: Medical Qualifiers: Irritable bowel syndrome type: unspecified Qualified Code(s): K58.9 - Irritable bowel syndrome, unspecified Plan . Medications: New bupropion HCl XL (Wellbutrin XL) 300 mg PO QAM 30 tabs 1RF Discontinued bupropion HCl XL (Wellbutrin XL) Discontinued Reason: Patient Completed Course 150 mg PO QAM 30 tabs 1RF
== END 2025-07-25 09:13 | disposition home or self-care (01) ==
LOC: HO.HMCFM 08:41
PROVIDERS: PCP Nurse Practitioner Family; Visit Provider Nurse Practitioner Family
DX: F90.9 Attention-deficit hyperactivity disorder, unspecified type (principal); F41.1 Generalized anxiety disorder; E55.9 Vitamin D deficiency, unspecified; K58.9 Irritable bowel syndrome, unspecified

== ENCOUNTER 2025-09-17 09:31 | Outpatient (REF) | payer OTHER, SELFPAY ==
--- NOTE | ~2025-09-17 | XR_ITS ---
EXAMINATION: XR CHEST CLINICAL INFORMATION: R05.9 - Cough, unspecified COMPARISON: None available. TECHNIQUE: PA and lateral views FINDINGS: No consolidation, pleural effusion or pneumothorax. Cardiomediastinal silhouette size is normal. Osseous structures are intact. Patient's large body habitus/obesity. XR/XR chest 2V IMPRESSION: No acute airspace disease. Electronically signed by: Reuben Botello MD 09/17/2025 11:06 AM [facility]
== END 2025-09-17 09:32 | disposition home or self-care (01) ==
LOC: HO.HMGCX 09:31
PROVIDERS: PCP Nurse Practitioner Family; Visit Provider Nurse Practitioner Family
DX: J06.9 Acute upper respiratory infection, unspecified (principal); J02.9 Acute pharyngitis, unspecified; R09.89 Other specified symptoms and signs involving the circulatory and respiratory systems; R05.2 Subacute cough
CPT/HCPCS: 71046

== ENCOUNTER 2025-09-17 09:31 | Outpatient (AMB) | payer OTHER, SELFPAY ==
[2025-09-17 09:33] VITALS: BP 118/70; PULSE 124; TEMP 36.7; O2SAT 99
--- NOTE | 2025-09-17 09:33 | AM.OFFWIN_ITS ---
Intake Vital Signs 09/17/25 09:33 Height 5 ft 5 in BMI Reason not done Patient refused/unable BP 118/70 Blood Pressure Location Lt brachial Position Sitting Pulse 124 H Pulse Source Pulse Oximeter Temp 98.0 F Temp Source Oral Pulse Oximetry (%) 99 Oxygen Delivery Method Room Air Comment HR increased, difficulty breathing with mask and chest congestion. Intake Visit Reasons: ep cold symptom chest congestion and coughing Intake Note: pt presents with chest congestion and coughing, mild sore throat on/off, laryngitis for 2 weeks Patient Tobacco Use Status: Never used Tobacco Allergies No Known Allergies Allergy (Verified 09/17/25 09:37) Do you need a note to return to daycare/school/sports/work: Yes Return to daycare/school/sports/work/other note: work HPI HPI Comments History of Present Illness Details 34 y/o Female patient presents to the or lk-in clinic with complaints of upper respiratory symptoms for the past 2 weeks. She reports cough, chest congestion, nasal pressure, sore throat, runny nose, wheezing, and chest tightness. Denies fever, chills, nausea, or vomiting. 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 [facility] Medical History (Updated 09/17/25 @ 11:15 by Abby Gonsalez NP) Acute respiratory disease Cough Cold sore IBS (irritable bowel syndrome) ADHD Surgical History (Updated 10/18/24 @ 10:16 by Aaron Smith MA) No pertinent past surgical history Family History Mother Mental health disorder Substance abuse Thyroid disorder Father Substance abuse Cancer Maternal Grandfather Substance abuse Maternal Grandmother Hypertension Cardiovascular disease Social History (Updated 10/18/24 @ 10:13 by Aaron Smith MA) Household Members: Other Household Members Other:: roomate Housing: Condominium Are you a primary insurance healthcare representative to a significant other at home: No Do you presently have visiting nurse or other home services: No Alcohol intake: current Alcohol intake frequency: a few times a month Patient Tobacco Use Status: Never used Tobacco e-Cigarette/Vaping Use: Never Used Second Hand Smoke Exposure: No service: No Current occupational status: employed 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 Cognitive needs: No Hearing needs: No Vision needs: Yes (wear glasses) Review of Systems Const All systems reviewed & are unremarkable except as noted in HPI and below Physical Exam Vital Signs: Last Vital Signs Temp 98.0 F 09/17/25 09:33 Pulse 124 H 09/17/25 09:33 BP 118/70 09/17/25 09:33 Pulse Ox 99 09/17/25 09:33 Oxygen Delivery Method Room Air 09/17/25 09:33 Const General: no acute distress Nutritional Appearance: overweight Orientation/consciousness: patient oriented x3 HEENT Head: Yes normocephalic Ears: external ears normal and TM abnormal bulging bilateral and with fluid behind the TM bilateral General nose exam: Nasal discharge present Mouth: moist mucous membranes and Abnormal oral and palatal mucosa present erythematous Throat: Yes uvula midline Resp Effort & Inspection: normal respiratory effort Auscultation: clear to auscultation bilaterally, no crackles, no rales, no rhonchi and no wheezes Cardio Heart sounds: S1 normal heart sound present and S2 normal heart sound present Neuro General: patient oriented x3, gait normal and moves all extremities Psych Speech and movement: Normal speech and movement present Assessment & Plan Assessment & Plan (1) Cough: Code(s): R05.9 - Cough, unspecified Qualifiers: Cough type: subacute Qualified Code(s): R05.2 - Subacute cough Plan: Acute bronchitis vs. viral upper respiratory infection Sinus congestion Reactive airway component secondary to URI Ordered Chest Xray Ordered Z-pack Ordered SARs. Encourage fluids, rest, humidifier use. Follow-up as needed or if symptoms worsen. Orders: Orders SARS-CoV2/FLU/RSV Today J06.9 - Acute upper respiratory infection, unspecified XR chest 2V Today R05.9 - Cough, unspecified Medications: New azithromycin 500 mg PO DAILY 3 tabs 0RF 3 days R05.9 - Cough, unspecified benzonatate 100 mg PO BID 60 caps 0RF R05.9 - Cough, unspecified dextromethorphan-guaifenesin 5-100 mg/5 mL (Robitussin Cough-Chest Congestion DM) 10 mL PO Q4-8H PRN 1,000 mL 0RF cough R05.9 - Cough, unspecified Coding Level of Care Code Est Pt Level 4 (38129) Diagnoses Subacute cough R05.2 Cough type: subacute Time Spent (min) 20
== END 2025-09-17 10:56 | disposition home or self-care (01) ==
PROVIDERS: PCP Nurse Practitioner Family; Visit Provider Nurse Practitioner Family
DX: R05.2 Subacute cough (principal)

== ENCOUNTER → 2025-09-17 10:55 | Outpatient (BNV) | payer OTHER, SELFPAY | PROVIDERS: PCP Nurse Practitioner Family; Visit Provider Radiology Diagnostic Radiology | DX: R05.9 Cough, unspecified (principal) | CPT/HCPCS: 71046 ==

== ENCOUNTER 2025-09-17 10:57 | Outpatient (REF) | payer SELFPAY ==
[2025-09-17 13:59] LABS: Resp Syncy Virus RNA Qual PCR NEGATIVE (Negative); SARS COV2 PCR INHOUSE NEGATIVE (Negative)
== END 2025-09-17 10:58 | disposition home or self-care (01) ==
LOC: HO.LAB 10:57
PROVIDERS: Visit Provider Nurse Practitioner Family
DX: J06.9 Acute upper respiratory infection, unspecified (principal)
CPT/HCPCS: 87637

== ENCOUNTER 2025-10-25 11:57 | Outpatient (AMB) | payer OTHER, SELFPAY ==
--- NOTE | 2025-10-25 12:01 | A.OFFPC_ITS ---
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 mg PO DAILY 90 caps 2RF Refilled doxycycline hyclate 100 mg PO BID 14 tabs 0RF Patient Instructions: Health screenings for women You should visit your health care provider from time to time, even if you are healthy. The purpose of these visits is to: Screen for medical issues Assess your risk for future medical problems Encourage a healthy lifestyle Update vaccinations and other preventive care services Help you get to know your provider in case of an illness Information Even if you feel fine, you should still see your provider for regular checkups. These visits can help you avoid problems in the future. For example, the only way to find out if you have high blood pressure is to have it checked regularly. High blood sugar and high cholesterol levels also may not have any symptoms in the early stages. A simple blood test can check for these conditions. There are specific times when you should see your provider or receive specific health screenings. The [place] Preventive Services Task Force publishes a list of recommended screenings. Below are screening guidelines for women ages 18 to 39. BLOOD PRESSURE SCREENING Your blood pressure should be checked at least once every 3 to 5 years if: Your blood pressure is in the normal range (top number less than 120 mm Hg and bottom number less than 80 mm Hg) You don't have risk factors for high blood pressure Ask your provider if you need your blood pressure checked more often if: The top number is 120 to 129 mm Hg or the bottom number is 70 to 79 mm Hg You have diabetes, heart disease, kidney problems, are overweight, or have certain other health conditions You have a first-degree relative with high blood pressure You are Black You had high blood pressure during a If the top number is 130 mm Hg or greater or the bottom number is 80 mm Hg or greater, this is considered stage 1 hypertension. Schedule an appointment with your provider to learn how you can reduce your blood pressure. Watch for blood pressure screenings in your area. Ask your provider if you can stop in to have your blood pressure checked. BREAST CANCER SCREENING Experts do not agree about the benefits of breast self-exams in finding breast cancer or saving lives. Talk to your provider about what is best for you. A screening mammogram is not recommended for most women under age 40. Your provider may discuss and recommend mammograms, MRI scans, or ultrasounds if you have an increased risk for breast cancer, such as: A mother or sister who had breast cancer at a young age (most often starting screening earlier than the age the close relative was diagnosed) You carry a high-risk genetic marker CERVICAL CANCER SCREENING Cervical cancer screening should start at age 21 years unless your provider advises otherwise. After the first test: Women ages 21 through 29 should have a Pap test every 3 years. Exoprts do not agree on whether HPV testing is recommended for this age group. Women ages 30 through 65 should be screened with either a Pap test every 3 years or the HPV test every 5 years or both tests every 5 years (called cotesting ). Women who have been treated for precancer (cervical dysplasia) should continue to have Pap tests for 20 years after treatment or until age 65, whichever is longer. If you have had your uterus and cervix removed (total hysterectomy), and you have not been diagnosed with cervical cancer or precancer (high grade cervical neoplasia), you do not need cervical cancer screening. CHOLESTEROL SCREENING Cholesterol screening should begin at: Age 45 for women with no known risk factors for coronary heart disease Age 20 for women with known risk factors for coronary heart disease Repeat cholesterol screening should take place: Every 5 years for women with normal cholesterol levels More often if changes occur in lifestyle (including weight gain and diet) More often if you have diabetes, heart disease, kidney problems, or certain other conditions DIABETES SCREENING You should be screened for diabetes starting at age 35 and then repeated every 3 years if you have no risk factors for diabetes. Screening may need to start earlier and be repeated more often if you have other risk factors for diabetes, such as: You have a first degree relative with diabetes. You are overweight or have obesity. You have high blood pressure, prediabetes, or a history of heart disease. Screening for diabetes should be done if you are planning to become and you are overweight and have other risk factors such as high blood pressure. DENTAL EXAM Go to the dentist once or twice every year for an exam and cleaning. Your dentist will evaluate if you need more frequent visits. EYE EXAM Have an eye exam every 5 to 10 years before age 40. If you have vision problems, have an eye exam every 2 years or more often if recommended by your provider. You should have an eye exam that includes an examination of your retina (back of your eye) at least every year if you have diabetes. IMMUNIZATIONS Commonly needed vaccines include: Flu shot: get one every year. COVID-19 vaccine: ask your provider what is best for you. Tetanus-diphtheria and acellular pertussis (Tdap) vaccine: have one at or after age 19 as one of your tetanus-diphtheria vaccines if you did not receive it as an adolescent. Tetanus-diphtheria: have a booster (or Tdap) every 10 years. Varicella vaccine: receive 2 doses if you never had chickenpox or the varicella vaccine. Hepatitis B vaccine: receive 2, 3, or 4 doses, depending on your exact circumstances. Measles, mumps, and rubella (MMR) vaccine: receive 1 to 2 doses if you are not already immune to MMR. Your provider can tell you if you are immune. Ask your provider about the human papillomavirus (HPV) vaccine if: You have not received the HPV vaccine in the past You have not completed the full vaccine series (you should catch up on this shot) Ask your provider if you should receive other immunizations if you have certain health problems that increase your risk for some diseases such as pneumonia. INFECTIOUS DISEASE SCREENING Women who are sexually active should be screened for chlamydia and gonorrhea up until age 25. Women 25 years and older should be screened for chlamydia and gonorrhea if at high risk. Screening for hepatitis C: All adults ages 18 to 79 should get a one-time test for hepatitis C. people should be screened at every . Screening for human immunodeficiency virus (HIV): All people ages 15 to 65 should get a one-time test for HIV. Depending on your lifestyle and medical history, you may also need to be screened for infections such as syphilis and HIV, as well as other infections. PHYSICAL EXAM All adults should visit their provider from time to time, even if they are healthy. The purpose of these visits is to: Screen for disease Assess your risk of future medical problems Encourage a healthy lifestyle Update your vaccinations and other preventive care services Maintain a relationship with a provider in case of an illness Your height, weight, and BMI should be checked at every exam. During your exam, your provider may ask you about: Depression and anxiety Diet and exercise Alcohol and tobacco use Safety issues, such as using seat belts, smoke detectors, and intimate partner violence Your medicines and risk for interactions SKIN SELF-EXAM Your provider may check your skin for signs of skin cancer, especially if you're at high risk, such as if you: Have had skin cancer before Have close relatives with skin cancer Have a weakened immune system OTHER SCREENING Talk with your provider about colon cancer screening if you have a strong family history of colon cancer or polyps, or if you have had inflammatory bowel disease or polyps yourself. Routine bone density screening of women under 40 is not recommended.
[2025-10-25 12:07] VITALS: BP 120/76; PULSE 95; RESP 13; TEMP 36.7; O2SAT 98
== END 2025-10-25 13:03 | disposition home or self-care (01) ==
PROVIDERS: PCP Nurse Practitioner Family; Visit Provider Nurse Practitioner Family
DX: Z00.00 Encounter for general adult medical examination without abnormal findings (principal); F90.9 Attention-deficit hyperactivity disorder, unspecified type; L98.9 Disorder of the skin and subcutaneous tissue, unspecified; L72.3 Sebaceous cyst; E55.9 Vitamin D deficiency, unspecified; M54.2 Cervicalgia; M54.50 Low back pain, unspecified; G89.29 Other chronic pain; F41.1 Generalized anxiety disorder; K58.9 Irritable bowel syndrome, unspecified; Z86.2 Personal history of diseases of the blood and blood-forming organs and certain disorders involving the immune mechanism; Z80.8 Family history of malignant neoplasm of other organs or systems

== ENCOUNTER → 2025-10-25 11:57 | Outpatient (BNVA) | payer OTHER, SELFPAY | PROVIDERS: PCP Nurse Practitioner Family; Visit Provider Nurse Practitioner Family | DX: Z00.00 Encounter for general adult medical examination without abnormal findings (principal); F90.9 Attention-deficit hyperactivity disorder, unspecified type; L98.9 Disorder of the skin and subcutaneous tissue, unspecified; L72.3 Sebaceous cyst; E55.9 Vitamin D deficiency, unspecified; M54.2 Cervicalgia; M54.50 Low back pain, unspecified; G89.29 Other chronic pain; F41.1 Generalized anxiety disorder; K58.9 Irritable bowel syndrome, unspecified; Z86.2 Personal history of diseases of the blood and blood-forming organs and certain disorders involving the immune mechanism; Z80.8 Family history of malignant neoplasm of other organs or systems | CPT/HCPCS: 96127 ==

== ENCOUNTER 2025-11-12 10:30 | Outpatient (AMB) | payer OTHER, SELFPAY ==
--- NOTE | 2025-11-12 10:38 | A.OFFVIS_ITS ---
Vital Signs 11/12/25 10:47 Height 5 ft 5 in BMI Reason not done Patient refused/unable BP 110/74 Blood Pressure Location Rt brachial Position Sitting Pulse 88 Pulse Source Pulse Oximeter Pulse Oximetry (%) 97 Oxygen Delivery Method Room Air Intake Visit Reasons: Irritable bowel syndrome, unspecified Intake Note: New pt for initial eval of GERD + IBS per PCP ([facility] [place] CC; C/O GERD + IBS hx with frequent IBS episodes per pt. Pt states that her omeprazole typically controls her GERD well as long as she remembers to take it. She had previously seen GI when she lived in [place] > 2 years ago. She also experiences nausea, bloating / gas. Hx of colo + EGD with [facility] ~ 4 years ago. Veterinary Receptionist Required: No Accompanied by: Self / Same As Patient Allergies No Known Allergies Allergy (Verified 11/12/25 10:39) HPI HPI Irritable bowel syndrome, unspecified: Details: 34 years old female with past medical history of iron-deficiency anemia, hyperhidrosis, vitamin-D deficiency, ADHD, IBS is here today for initial cons ultation. Patient is trying to reestablish care with Gastroenterology. Recently moved to the area from [place]. Previously seen there by GI specialty, upper endoscopy and colonoscopy was done and patient was diagnosed with IBS. Patient currently is on omeprazole 20 mg daily and reports that if she takes it the medication works for the most part. Patient does admit however that occasionally he will forget. If she does not take it for couple days her symptoms of acid reflux and epigastric pain will be persistent until she is on daily regimen again. However patient does agree port that if she eats spicy food what she admits loving it she will have a epigastric pain. Patient will have postprandial loose stool and then constipation. Patient does have real estate rental agent that she sees and follows up with. Patient reports that she used to followed vegan diet, however now she is introducing meat in to her diet and for protein. Patient only eats chicken and turkey. Patient does not eat pork or red me. Patient noticed that when she is using garlic she will have abdominal bloating as well as if she has lactose. Patient noticed that even with coffee she will have symptoms. Patient reports that she is using unsweetened almond milk. Patient denies any melena, hematochezia, unintentional weight loss or ribbon like stools PFSH Medical History Acute respiratory disease Cough Cold sore IBS (irritable bowel syndrome) ADHD Surgical History History of esophagogastroduodenoscopy (EGD) H/O colonoscopy H/O bone graft [place] teeth extracted No pertinent past surgical history Family History Mother Mental health disorder Substance abuse Thyroid disorder Father Substance abuse Esophageal cancer Maternal Grandfather Substance abuse Maternal Grandmother Hypertension Cardiovascular disease Social History Household Members: Other Household Members Other:: roomate Both parents involved: No Caregiver staying overnight: No Housing: Condominium Are you a primary resident care provider to a significant other at home: No Do you presently have visiting nurse or other home services: No 75 years or older and lives alone: No Alcohol intake: current Alcohol intake frequency: a few times a month Patient Tobacco Use Status: Never used Tobacco e-Cigarette/Vaping Use: Never Used Second Hand Smoke Exposure: No service: No Current occupational status: employed 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 Cognitive needs: No Hearing needs: No Vision needs: Yes (wear glasses) Review of Systems Const Denies weight gain and Denies weight loss ENT Reports no additional complaints, Denies dysphagia and Denies odynophagia Card Reports no additional complaints Resp Reports no additional complaints GI Reports abdominal pain, Denies belching, Denies melena, Reports bloating, Denies change in bowel habits, Reports constipation, Denies dysphagia, Denies excessive flatus, Denies dyspepsia, Reports heartburn, Denies diarrhea, Reports loose stools, Denies nausea, Denies odynophagia and Denies vomiting Reports no additional complaints Musc Reports no additional complaints Neuro Reports no additional complaints Psych Reports no additional complaints Endo Reports no additional complaints Physical Exam Vital Signs: Last Vital Signs Pulse 88 11/12/25 10:47 BP 110/74 11/12/25 10:47 Pulse Ox 97 11/12/25 10:47 Oxygen Delivery Method Room Air 11/12/25 10:47 Const General: healthy appearing, no acute distress and well developed Nutritional Appearance: well nourished Orientation/consciousness: patient oriented x3 Resp Effort & Inspection: normal respiratory effort, able to speak in complete sentences, no tracheal deviation and symmetric chest movement Auscultation: clear to auscultation bilaterally Cardio Rate: regular rate GI Inspection: Yes normal to inspection and No distended Palpation (GI): Soft to palpation, not firm, nontender and No hepatosplenomegaly present Auscultation: normal bowel sounds General: Yes no CVA tenderness Back/Spine/Pelvis Back: no CVA tenderness Skin General skin exam: elasticity normal, turgor normal and dry skin Neuro General: patient oriented x3 Psych Appearance: grossly normal Mental Status: mental status grossly normal Assessment & Plan Assessment & Plan (1) IBS (irritable bowel syndrome): Code(s): K58.9 - Irritable bowel syndrome, unspecified Category: Medical Qualifiers: Irritable bowel syndrome type: unspecified Qualified Code(s): K58.9 - Irritable bowel syndrome, unspecified (2) GERD (gastroesophageal reflux disease): Code(s): K21.9 - Gastro-esophageal reflux disease without esophagitis Qualifiers: Esophagitis presence: esophagitis presence not specified Qualified Code(s): K21.9 - Gastro-esophageal reflux disease without esophagitis (3) Postprandial epigastric pain: Code(s): R10.13 - Epigastric pain (4) Postprandial abdominal bloating: Code(s): R14.0 - Abdominal distension (gaseous) Plan Will check transglutaminase. Patient will continue taking omeprazole daily. Encouraged patient to try to remember taking it every day. Patient has outstanding labs ordered by PCP. Patient was encouraged to get them done. Low FODMAP diet discussed with patient. List of food recommended as well as list of food to avoid given to patient. Patient will speak to her real estate rental agent and figure out a meal plan. Discussed with patient also avoiding dietary triggers like spicy food and coffee.. Avoiding late in the night. Staying upright for minimum 3 hours after meals discussed with patient. Patient will return in 3 months, sooner on as needed basis treat she is agreeable to this plan and verbalizes understanding of instructions. She was given the opportunity to ask questions and all questions answered. Patient will call her her GI specialist back in [place] and will try to get records. Thank you for allowing me to participate in her care Orders: Orders Transglutaminase IgA Today R10.9 - Unspecified abdominal pain Coding Level of Care Code New Pt Level 4 (18274) Diagnoses Irritable bowel syndrome, unspecified type K58.9 Irritable bowel syndrome type: unspecified Gastroesophageal reflux disease, unspecified whether esophagitis present K21.9 Esophagitis presence: esophagitis presence not specified Postprandial epigastric pain R10.13 Postprandial abdominal bloating R14.0 Time Spent (min) 45 Comment 35 minutes spent with patient and additional 10 minutes spent reviewing her records
[2025-11-12 10:47] VITALS: BP 110/74; PULSE 88; O2SAT 97
== END 2025-11-12 11:16 | disposition home or self-care (01) ==
LOC: HO.HGI 10:31
PROVIDERS: PCP Nurse Practitioner Family; Visit Provider Nurse Practitioner Family
DX: K58.9 Irritable bowel syndrome, unspecified (principal); K21.9 Gastro-esophageal reflux disease without esophagitis; R10.13 Epigastric pain; R14.0 Abdominal distension (gaseous)
CPT/HCPCS: 99204